=== PATIENT | female | born 1965 | race Caucasian/White ===

== ENCOUNTER 2018-05-15 16:26 | Emergency (ER) | payer OTHER ==
--- NOTE | 2018-05-15 16:38 | EDPHY ---
H & P Time Seen by Provider: 05/15/18 16:37 HPI/ROS: CHIEF COMPLAINT: Upper abdominal pain continues, sharp, short, jabbing torso pain, sore throat HISTORY OF PRESENT ILLNESS: [This is a 53-year-old female who is visiting from [place]. They have been doing a bit of a trip looking at colleges for her high school aged daughter. They just arrived yesterday on a airline flight from [place]. They are heading home to [place] in 2 days time. Yesterday she developed a mild sore throat and persist through today. This was no fever or adenopathy. She has had no known exposure. Her high school daughter is feeling well and there has been no specific known exposure. She has had a little difficulty sleeping last night the and has not been particularly conscientious of hydrating as usually recommended for those who are coming up from low altitude. They live in [facility]. Approximately 2 months ago she developed pain in the upper abdomen. Overtime this is settled into the right upper quadrant. It persists at this point in time. She has had an outpatient evaluation completed a normal negative abdominal ultrasound. She also had lower abdominal pelvic ultrasound due to some lower abdominal pain. Given the normal findings she is scheduled in approximately 2 weeks time for an EGD as well as a colonoscopy. Further, she has a manage with Prilosec. As she was not getting better most recent she had ranitidine added to the plan and regimen. She does not notice any improvement in this abdominal pain. This abdominal pain is not psoas prompted her to come in tonight however. See below. She comes in today not only for the sore throat as noted above but also these pains that she is experiencing to the torso. These have occurred virtually everywhere vis-a-vis the back in the upper chest, anterior chest as well as abdomen. There short jabbing sharp pains that are very short in duration. They do not last but seconds. She does not notice any particular that precipitates these such as movement or positions. She has had no associated nausea, vomiting, or shortness of breath. No decrease in exercise capacity. She did have a DVT in the left leg some 2 years ago at the time of a walking cast application for sprained ankle which required 1 month of anticoagulation therapy. REVIEW OF SYSTEMS: Constitutional: No fever, no chills. Eyes: No discharge. ENT: No sore throat. Cardiovascular: No chest pain, no palpitations. Respiratory: No cough, shortness of breath, or wheezing. Gastrointestinal: No Nausea, vomiting, abdominal pain or diarrhea Genitourinary: No hematuria or frequency. Musculoskeletal: No back pain. Skin: No rashes. Neurological: No headache. A 10 system review of systems was performed and is negative except for the noted findings in the HPI. Source: Patient Exam Limitations: No limitations - Medical/Surgical History Hx Asthma: No Hx Chronic Respiratory Disease: No Hx Diabetes: No Hx Cardiac Disease: No Hx Renal Disease: No Hx Cirrhosis: No Hx Alcoholism: No Hx HIV/AIDS: No Hx Splenectomy or Spleen Trauma: No Other PMH: Recent workup for this upper abdominal pain as included in upper abdominal ultrasound as well as a pelvic ultrasound due to some lower abdominal pain. See the HPI for those results. She is scheduled to have an EGD and colonoscopy in the 3rd week in May. History of left leg id DVT 2 years ago at time of wearing a cast boot. She was on anticoagulants for 1 month - Family History Significant Family History: Vascular disease (Father had a thoracic aortic aneurysm mother had an abdominal aortic aneurysm which is being monitored.) - Social History Alcohol Use: None Drug Use: None - Physical Exam Exam: General Appearance: Alert, no distress. Afebrile. Normal phonation. No respiratory distress. Eyes: Pupils equal and round no pallor or injection. No icterus ENT, Mouth: Mucous membranes dry Pharynx without erythema or exudate, but does appear overall dry. No enanthem. TM Clear. Neck: No adenopathy. Supple. No JVD. Trachea in midline. Respiratory: There are no retractions, lungs are clear to auscultation. Cardiovascular: Regular rate and rhythm without murmur. No extra beats as seen on the EKG Abdomen: Soft. There is a sense of fullness in the right upper quadrant with tenderness in that vicinity. It is almost like a feel liver edge. There is no rebound or guarding. Bowel sounds present. Abdomen is soft. Scaphoid. No masses, aortic pulsations felt without any signs of enlargement. Neurological: Ox3. No motor weakness. Sensation intact. Gait nl. Skin: Warm and dry, no rashes. Musculoskeletal: No joint swelling. Extremities: No edema. Homans sign negative. No cords. Psychiatric: Normal affect. Patient is oriented X 3. There is no agitation Constitutional: Initial Vital Signs Temperature (C) 37.1 C 05/15/18 16:34 Heart Rate 78 05/15/18 16:34 Respiratory Rate 18 05/15/18 16:34 Blood Pressure 141/73 H 05/15/18 16:34 O2 Sat (%) 96 05/15/18 16:34 O2 Delivery Mode Room Air Allergies/Adverse Reactions: Sulfa (Sulfonamide Antibiotics) Allergy (Verified 05/15/18 16:40) Home Medications: Medication Instructions Recorded Levothyroxine 05/15/18 Omeprazole 05/15/18 Ranitidine HCl 05/15/18 Medical Decision Making - Diagnostics EKG Interpretation: EKG: Interpreted by me contemporaneously. Rhythm: Normal sinus rhythm with trigeminy, unifocal Heart rate 68 QTc 463 QRS: The gambell rhythm as normal QRS however there are frequent PVCs of a trigeminy for ready. ] STT segment: normal T Waves: Normal Q waves none Summary: Normal sinus rhythm with trigeminy. No signs of ischemic changes. ED Course/Re-evaluation: She was hemodynamically stable without evidence of dehydration thus no IV fluids were necessary Laboratory studies here include the following: WBC normal Hemoglobin hematocrit normal Electrolytes normal Liver function tests normal D-dimer normal Troponin normal As noted by over EKG shows trigeminy. However upon clinical examination shortly thereafter as I palpate her peripheral pulse it is steady at 68. No evidence of hemodynamic instability. Chest x-ray: Two view chest. Interpreted by radiologist . Films reviewed by me on the PACS system. Normal mediastinum. Normal lung jennings. No effusions. Normal chest. No signs of cardiomegaly. Ultrasound the abdomen: Interpreted by radiologist. Discussed with radiologist. He notes that there is a rather tall liver with the lobe of the liver on the right descending below the iliac crest. He suggests that we are looking a Reidel right lobe and thereby a normal variant. That would explain the clinical fullness as noted above. Given the normal appearance of the chest and laboratory studies I do not see a need for hospitalization or actual treatment of the trigeminy. Follow-up would be appropriate. A Perc Score could not be performed given her age of 53. Further she did have a history of DVT thus a D-dimer was performed as noted above in was normal. HEART score 0. Essentially, this kind of pain would be construed is no risk. I am concerned with her taking both Prilosec and ranitidine as there have been reports of Rodriguez's esophagus in those taking the combination of PPIs with Pepcid. Thereby have asked her to take the Prilosec twice a day and hold the bending till she chest a chance to check with her PCP. On initial exam was a some specific right upper quadrant tenderness and fullness as noted above in the history as well as physical. However, as her liver enzymes were normal I do not see that it is important at this point in time to proceed with a nuclear is tied scan or CT scan. Of note is that she had an ultrasound done approximately 3-4 weeks ago. I would expected the liver to have been evaluated as long as the gallbladder, thus normal at that time. This torso symptomatology she describes appears benign at this time and no further workup is necessary. She has a negative Centaur criteria for strep throat. Differential Diagnosis: Diagnostic considerations include, but are not limited to, the following, 5this represents a partial list of diagnoses considered These considerations are based on history, physical exam, past history, reassessment and diagnostic testing: Gallbladder sludge with cholecystitis, coronary disease, ACS, PE, costochondritis, muscle spasms, muscle strain, anxiety. - Data Points Point of Care Test Results: CBC CBC Collection Date 05/15/18 CBC Collection Time 17:30 WBC 7.91 RBC 4.4 HGB 13.2 HCT 40.1 PLT 275 Neut # 6.03 Neut 76.3 LYMPH # 1.03 LYMPH 13 MCV 91.1 Chemistry 05/15/18 05/15/18 17:42 17:39 POC Sodium 143 mEq/L mEq/L (135-145) POC Potassium 3.7 mEq/L mEq/L (3.3-5.0) POC Chloride 110.0 mEq/L mEq/L (97-110) POC Total CO2 27 mEq/L mEq/L (22-31) POC BUN 12 mg/dL mg/dL (7-23) POC Creatinine 1.0 mg/dL mg/dL (0.6-1.0) POC Glucose 98 mg/dL mg/dL (70-100) POC Calcium 8.8 mg/dL mg/dL (8.5-10.4) POC Total Bilirubin 0.6 mg/dL mg/dL (0.1-1.4) POC AST 21 IU/L IU/L (14-46) POC ALT 11 IU/L IU/L (9-52) POC Alk Phosphatase 54 IU/L IU/L (38-126) POC Troponin I 0.00 ng/mL ng/mL (0.00-0.08) POC Total Protein 6.8 g/dL g/dL (6.3-8.2) POC Albumin 3.8 g/dL g/dL (3.5-5.0) D-Dimer D-Dimer Collection Date 05/15/18 D-Dimer Collection Time 17:30 D-Dimer (ng/ml) <100 Departure - Departure Disposition: Home, Routine, Self-Care Clinical Impression: Chest pain in adult Abdominal pain Qualifiers: Abdominal location: upper abdomen, unspecified Qualified Code(s): R10.10 - Upper abdominal pain, unspecified Condition: Good Instructions: Acute Abdominal Pain (ED) Additional Instructions: Going forward: Stop the ranitidine Take the Prilosec twice daily Take MiraLax once daily for 30 days to see if this improves the constipation that she has been suffering from. Review with her doctor: 1, Concern for combination of ranitidine with Prilosec, just in case you're doctor would prefer the combination. This has been known to be a problem with respect Pepcid. 2. Trigeminy which is benign in the setting of a normal-sized heart and normal chemistries as we had done today Definitely have the upper abdominal gastritis could be as well as the colonoscopy as later scheduled in this month. Diet as tolerated however high-fiber diet might help. Referrals: NONE *PRIMARY CARE P,. [Primary Care Provider] - As per Instructions
[2018-05-15 19:12] VITALS: BP 133/66
--- NOTE | 2018-05-16 00:43 | CPEKG ---
Test Reason : OPEN Blood Pressure : / mmHG Vent. Rate : 068 BPM Atrial Rate : 070 BPM P-R Int : 126 ms QRS Dur : 110 ms QT Int : 435 ms P-R-T Axes : -22 034 037 degrees QTc Int : 463 ms Sinus rhythm Ventricular trigeminy Confirmed by Dilan Robins ([id number]) on 05/16/2018 12:43:08 AM Referred By: Dilan Robins Confirmed By:Dilan Robins
== END 2018-05-15 19:45 | disposition home or self-care (01) ==
LOC: CED 16:26
DX: R07.9 Chest pain, unspecified (principal); R10.10 Upper abdominal pain, unspecified; J02.9 Acute pharyngitis, unspecified; Z86.718 Personal history of other venous thrombosis and embolism; Z82.49 Family history of ischemic heart disease and other diseases of the circulatory system; Z88.2 Allergy status to sulfonamides
CPT/HCPCS: 71046-PO; 74018-PO; 80053-ER; 84484-ER; 85025-QW-ER; 85379-QW-ER; 99285-ER